=== PATIENT | male | born 1995 ===

== ENCOUNTER 2017-12-23 08:12 | Emergency (ER) | payer SELFPAY | END 2017-12-23 08:37 | disposition home or self-care (01) | LOC: ERS 08:12 | DX: H60.91 Unspecified otitis externa, right ear (principal); R09.81 Nasal congestion; R09.89 Other specified symptoms and signs involving the circulatory and respiratory systems; J02.9 Acute pharyngitis, unspecified | CPT/HCPCS: 99282 ==